=== PATIENT | male | born 1985 | race Caucasian/White ===

== ENCOUNTER 2022-10-07 08:20 | Emergency (ER) | payer OTHER ==
[2022-10-07 09:10] LABS: ESTIMATED GFR 88 mL/min (>60)
== END 2022-10-07 11:23 | disposition home or self-care (01) ==
LOC: FB.ED 08:20
DX: L03.115 Cellulitis of right lower limb (principal); E66.9 Obesity, unspecified; Z68.30 Body mass index [BMI] 30.0-30.9, adult; Z72.0 Tobacco use
CPT/HCPCS: 36415; 73630-RT; 80053; 84550; 85025; 85379; 86140; 99283

== ENCOUNTER 2024-09-19 11:52 | Emergency (ER) | payer OTHER ==
[2024-09-19] MEDS: Sodium Chloride 0.9% 1,000 ML IV ONE ×2 (12:15→13:27)
[2024-09-19] MEDS: LORazepam 2 MG/ML SDV IVPUSH ONE (12:16)
[2024-09-19] MEDS: Ondansetron 4 MG/2 ML SDV IVPUSH ONE (12:16)
[2024-09-19 12:29] LABS: BLOOD UREA NITROGEN,BUN 13 mg/dL (7-18); CALCIUM 10.3 mg/dL (8.6-10.2); CARBON DIOXIDE,CO2 20 mmol/L (21-32); CHLORIDE,CL 105 mmol/L (100-110); CREATININE 1.3 mg/dL (0.70-1.30); EST CRCL DRUG DOSING (CG) 77.99 mL/min; ESTIMATED GFR 71 mL/min (>60); GLUCOSE RANDOM 138 mg/dL (80-116); POTASSIUM,K 3.3 mmol/L (3.5-5.3); SODIUM,NA 143 mmol/L (135-145)
[2024-09-19 12:30] LABS: HEMATOCRIT 46.4 % (38.3-50.1); HEMOGLOBIN 16.3 g/dL (12.9-17.7); MEAN CORPUSCULAR HEMOGLOBIN 32.9 pg (27.0-33.3); MEAN CORPUSCULAR HGB CONC 35.2 g/dL (28.7-35.3); MEAN CORPUSCULAR VOLUME 93.2 fL (80.8-98.7); MEAN PLATELET VOLUME 7.7 fL (6.7-11.0); PLATELET COUNT,PLT 413 x10(3)uL (117-477); RED BLOOD CELL COUNT 4.97 x10(6)uL (3.90-5.90); RED CELL DISTRIBUTION WIDTH 14.3 % (12.4-15.0); WHITE BLOOD CELL COUNT,WBC 14.4 x10-3/uL (3.2-10.1)
[2024-09-19 12:31] LABS: LIPASE 32 U/L (16-77)
[2024-09-19 12:34] LABS: C-REACTIVE PROTEIN < 0.50 mg/dL (<0.50)
[2024-09-19 12:35] LABS: A/G RATIO 1.3; ALANINE AMINOTRANSFERASE,ALT 33 U/L (12-36); ALBUMIN 4.5 g/dL (3.5-5.2); ALKALINE PHOSPHATASE 73 IU/L (56-112); ASPARTATE AMNIOTRANSFERASE,AST 18 IU/L (5-25); BILIRUBIN TOTAL 0.6 mg/dL (0.1-1.3); PROTEIN TOTAL,TP 7.9 g/dL (6.0-8.0)
[2024-09-19 12:42] LABS: EOSINOPHILS PERCENT MAN 1 % (0-5); LYMPHOCYTES PERCENT MAN 23 % (13-37); MONOCYTES PERCENT MAN 8 % (4-12); SEG NEUTROPHILS PERCENT MAN 68 % (46-82)
[2024-09-19 12:45] LABS: LACTIC ACID 3.5 mmol/L (0.4-2.0)
== END 2024-09-19 15:20 | disposition home or self-care (01) ==
LOC: FB.ED 11:52
DX: K31.84 Gastroparesis (principal); R55 Syncope and collapse; E86.0 Dehydration; E66.9 Obesity, unspecified; F17.200 Nicotine dependence, unspecified, uncomplicated; Z79.899 Other long term (current) drug therapy; Z68.33 Body mass index [BMI] 33.0-33.9, adult
CPT/HCPCS: 36415; 80053; 83605; 83690; 85025; 86140; 87040; 93005; 93010; 96361; 96374; 96375; 99284; 99284-25; J2060; J2405; J7030

== ENCOUNTER 2024-09-19 18:32 | Emergency (ER) | payer OTHER ==
[2024-09-19] MEDS: Ondansetron 4 MG/2 ML SDV IVPUSH ONE (20:12)
[2024-09-19] MEDS: LORazepam 2 MG/ML SDV IVPUSH ONE (20:12)
[2024-09-19] MEDS: Sodium Chloride 0.9% 1,000 ML IV ONE (20:30)
== END 2024-09-19 23:05 | disposition home or self-care (01) ==
LOC: FB.ED 18:32
DX: K31.84 Gastroparesis (principal); F17.210 Nicotine dependence, cigarettes, uncomplicated; E66.9 Obesity, unspecified; Z79.899 Other long term (current) drug therapy; Z68.32 Body mass index [BMI] 32.0-32.9, adult
CPT/HCPCS: 74176; 96361; 96374; 96375; 99284; J2060; J2405; J7030